=== PATIENT | female | born 1985 | race Caucasian/White ===

== ENCOUNTER 2017-08-02 16:18 | Emergency (ER) | payer OTHER ==
[~2017-08-02] VITALS: Ht 152.4 cm; Wt 70.8 kg
--- NOTE | 2017-08-02 16:25 | NUR ---
[id number], [id number] FROM [facility]: LOWER ABDOMINAL PAIN x 3 HRS. RR IS EVEN AND UNLABORED WITH NAD NOTED. SKIN IS WARM AND DRY. AWAITING MD FOR EVAL.
--- NOTE | 2017-08-02 16:28 | NUR ---
CALISTA MUNOZ AT BS FOR EVAL.
[2017-08-02] MEDS ORDERED: HYDROCODONE/APAP 5/325MG 1 EACH TABLET PO ONE (17:00)
[2017-08-02 17:04] LABS: APPEARANCE,URINE Slightly Cloudy (CLEAR); BILIRUBIN,URINE Negative (NEGATIVE); BLOOD, URINE Moderate Ery/uL (NEGATIVE); COLOR,URINE Yellow (YELLOW); KETONES,URINE Negative (NEGATIVE); LEUKOCYTE ESTERASE ,URINE Small (NEGATIVE); NITRITE, URINE Negative (NEGATIVE); PH,URINE 5.5 (5.0-8.0); PROTEIN,URINE 100 mg/dl (NEGATIVE); UGLUCOSE Negative (NEGATIVE)
[2017-08-02 17:06] LABS: BASOPHILS # (AUTO) 0.2 /CMM (0.0-0.2); BASOPHILS % (AUTO) 1.5 % (0.0-2.0); EOSINOPHILS # (AUTO) 0.1 /CMM (0.0-0.7); EOSINOPHILS % (AUTO) 0.6 % (0.0-6.0); HEMATOCRIT 41 % (33-45); HEMOGLOBIN 13.9 g/dL (11.5-14.8); LYMPHOCYTES # (AUTO) 2.3 /CMM (0.8-4.8); LYMPHOCYTES % (AUTO) 22.8 % (20.0-44.0); MEAN CORPUSCULAR HEMOGLOBIN 29 PG (26.0-33.0); MEAN CORPUSCULAR HGB CONC 34 g/dl (31.0-36.0); MEAN CORPUSCULAR VOLUME 84 fL (82-100); MONOCYTES # (AUTO) 0.7 /CMM (0.1-1.30); MONOCYTES % (AUTO) 6.7 % (2.0-12.0); NEUTROPHILS # (AUTO) 6.9 /CMM (1.8-8.9); NEUTROPHILS % (AUTO) 68.4 % (43.0-81.0); PLATELET COUNT (AUTO) 118 /CMM (150-450); RDW COEFFICIENT OF VARIATION 12.6 (11.5-15.0); RED BLOOD CELL COUNT(AUTO) 4.82 MIL/uL (4.0-5.2); WHITE BLOOD COUNT (AUTO) 10.2 K/uL (4.3-11.0)
[2017-08-02 17:12] LABS: CALCIUM, SERUM 9.3 mg/dL (8.5-10.1); CREATININE 0.5 mg/dL (0.6-1.3); POTASSIUM 3.5 mmol/L (3.5-5.1)
[2017-08-02 17:18] LABS: ALBUMIN 3.8 g/dL (3.4-5.0); BILIRUBIN,DIRECT 0.1 mg/dL (0.0-0.2); BILIRUBIN,TOTAL 0.6 mg/dL (0.2-1.0); TOTAL PROTEIN, SERUM 8.2 g/dL (6.4-8.2)
[2017-08-02] MEDS ORDERED: HYDROCODONE/APAP 5/325MG 1 EACH TABLET ONE (17:25)
[2017-08-02 17:35] LABS: APPEARANCE,URINE Slightly Cloudy (CLEAR); BILIRUBIN,URINE Negative (NEGATIVE); BLOOD, URINE Negative Ery/uL (NEGATIVE); COLOR,URINE Yellow (YELLOW); KETONES,URINE Trace (NEGATIVE); LEUKOCYTE ESTERASE ,URINE Small (NEGATIVE); NITRITE, URINE Negative (NEGATIVE); PROTEIN,URINE Trace mg/dl (NEGATIVE); UGLUCOSE Negative (NEGATIVE)
[2017-08-02 17:45] LABS: BACTERIA,URINE Moderate /HPF (None Seen); SQUAMOUS EPITHELIAL CELL,UR Few /HPF (None Seen)
[2017-08-02] MEDS ORDERED: NITROFURANTOIN/NITROFURAN MAC 100 MG CAPSULE PO ONE (18:00)
[2017-08-02] MEDS ORDERED: NITROFURANTOIN/NITROFURAN MAC 100 MG CAPSULE ONE (18:10)
--- NOTE | 2017-08-02 18:20 | NUR ---
CALISTA MUNOZ AT BS FOR AN UPDATE AND RE-EVAL.
--- NOTE | 2017-08-02 18:55 | NUR ---
Patient discharged to home in stable condition. Written and verbal after care instructions given. Patient verbalizes understanding of instruction.
[2017-08-02 18:57] VITALS: BP 125/68
== END 2017-08-02 18:59 | disposition home or self-care (01) ==
LOC: ER 16:19
DX: N39.0 Urinary tract infection, site not specified (principal); R10.10 Upper abdominal pain, unspecified; Q61.5 Medullary cystic kidney; K76.0 Fatty (change of) liver, not elsewhere classified; Z90.49 Acquired absence of other specified parts of digestive tract
CPT/HCPCS: 36415; 76770; 80048; 80076; 81001 ×2; 84703; 85025; 87077; 87086; 87186; 99285; A4606; Z7610; 81000-TC

== ENCOUNTER 2018-08-29 02:27 | Emergency (ER) | payer OTHER ==
[~2018-08-29] VITALS: Ht 162.6 cm; Wt 65.3 kg
--- NOTE | 2018-08-29 02:31 | NUR ---
PT AMBULATED TO THE BATHROOM TO GIVE A URINE SAMPLE, BUT WAS UNABLE TO GIVE A SAMPLE.
--- NOTE | 2018-08-29 02:31 | NUR ---
PT BIB [facility] WITH A C/O LOWER BACK PAIN. PT HAS NO MEDICAL HX AND WAS SHOPPING AT [employer] WHEN SHE CALLED 911. PT HAS NO ID AND IS AMBULATORY WITH A STEADY GAIT. PT IS CANADIAN SPEAKING ONLY.
[2018-08-29] MEDS ORDERED: MAG HYDROX/AL HYDROX/SIMETH 30 ML UDC ONE (02:57)
[2018-08-29] MEDS ORDERED: LIDOCAINE VISCOUS 2% UD 15 ML UDC ONE (02:57)
[2018-08-29] MEDS ORDERED: MAG HYDROX/AL HYDROX/SIMETH 30 ML UDC PO ONE (03:00)
[2018-08-29] MEDS ORDERED: LIDOCAINE VISCOUS 2% UD 15 ML UDC MM ONE (03:00)
--- NOTE | 2018-08-29 03:05 | NUR ---
PT IS LYING ON HER SIDE, SLEEPING SOUNDLY. PT DID NOT WAKE UP RIGHT AWAY. PT STATED THAT SHE COULD NOT GIVE A URINE SAMPLE. PT WENT BACK TO SLEEP. WILL TRY AGAIN LATER.
--- NOTE | 2018-08-29 04:00 | NUR ---
PT IS SLEEPING SOUNDLY. HAD TO WAKE PT UP TO ASK IF SHE COULD GIVE A URINE SAMPLE. PT STATED THAT SHE COULD NOT GIVE A SAMPLE AT THIS TIME.
--- NOTE | 2018-08-29 04:05 | NUR ---
SPOKE TO PT RE: DOING AN IN AND OUT CATH. PT STATED THAT SHE COULD NOT GO RIGHT NOW AND WOULD ALLOW FOR A RAHMAN. PRAFUL, EMT WAS AT THE BEDSIDE TRANSLATING FOR PT. PT IS GERMAN SPEAKING ONLY.
--- NOTE | 2018-08-29 04:15 | NUR ---
URINE SAMPLE OBTAINED. APPROX 200 ML YELLOW URINE OUTPUT NOTED. SAMPLE SENT TO LAB.
--- NOTE | 2018-08-29 04:35 | NUR ---
CALLED ANDRES FOR REPORT
[2018-08-29 04:55] LABS: APPEARANCE,URINE SL CLOUDY (CLEAR); BILIRUBIN,URINE NEGATIVE (NEGATIVE); BLOOD, URINE NEGATIVE Ery/uL (NEGATIVE); COLOR,URINE YELLOW (YELLOW); KETONES,URINE NEGATIVE (NEGATIVE); LEUKOCYTE ESTERASE ,URINE TRACE (NEGATIVE); NITRITE, URINE NEGATIVE (NEGATIVE); PROTEIN,URINE NEGATIVE (NEGATIVE); UGLUCOSE NEGATIVE (NEGATIVE)
--- NOTE | 2018-08-29 05:00 | NUR ---
PT IS SLEEPING SOUNDLY WITH NO S/S OF PAIN OR DISTRESS. WILL CONTINUE TO MONITOR THE PT.
[2018-08-29 05:08] LABS: BACTERIA,URINE Few /HPF (None Seen); SQUAMOUS EPITHELIAL CELL,UR Few /HPF (None Seen); WBC,URINE 21-50 /HPF (0-3)
--- NOTE | 2018-08-29 05:10 | NUR ---
PT WAS SLEEPING SOUNDLY AND HAD TO BE WOKEN UP. PT FINALLY WOKE UP AND STARTED SAYING THAT SHE IS TIRED AND DOESN'T FEEL WELL.
--- NOTE | 2018-08-29 05:20 | NUR ---
Patient discharged to home in stable condition. Written and verbal after care instructions given. Patient verbalizes understanding of instruction. PT REFUSED TO SIGN THE PAPERWORK AND PT DID NOT WANT TO LEAVE. PT WAS SLEEPING SOUNDLY AND WAS NOT READY TO LEAVE. PT AMBULATED TO THE BATHROOM WITH A STEADY GAIT. NO ATAXIA NOTED. SECURITY IS STANDING BY TO ESCORT PT OUT OF THE ER. PT REC'D A SWEATER/JACKET AND SWEATPANTS. PT'S CLOTHES WERE LIGHT. PT DENIES BEING HOMELESS AND STATED THAT SHE LIVES WITH HER FATHER.
[2018-08-29] MEDS ORDERED: GUAIFENESIN/D-METHORPHAN HB 5 ML UDC ONE (05:44)
--- NOTE | 2018-08-29 05:45 | NUR ---
PT CAME OUT OF THE BATHROOM AND C/O A SORE THROAT. DR. JC EVALUATED HER AND ORDERED ROBATUSSIN DM. PT REFUSED MEDICATION AND STARTED YELLING THAT SHE FEELS BAD. PT WAS OFFERED THE COUGH SYRUP 3 TIMES AND PT REFUSED AND CONTINUED TO YELL AND C/O A SORE THROAT. PT WAS ASKED TO GO TO THE WAITING ROOM. PT WAS YELLING THAT "YOU WOULDN'T KICK OUT A DOG LIKE THIS". PT AMBULATED OUT TO THE LOBBY WITH A STEADY GAIT AND NO S/S OF PAIN OR DISTRESS WAS NOTED. RESP ARE EVEN AND UNLABORED.
--- NOTE | 2018-08-29 05:45 | NUR ---
PT DENIES BEING HOMELESS. PT STATED THAT SHE LIVES WITH HER FATHER.
[2018-08-29] MEDS ORDERED: GUAIFENESIN/D-METHORPHAN HB 5 ML UDC PO ONE (06:00)
[2018-08-29 06:07] VITALS: BP 128/75
--- NOTE | 2018-08-29 06:23 | NUR ---
PT IS ACTING UP IN THE WAITING ROOM S/P DISCHARGE. HORACIO DILLON/ANAG CALLED SOBIA, THE NURSING TREE SPECIALIST TO LET HER KNOW WHAT IS GOING ON. ADVISED BY NURSING TREE SPECIALIST THAT THE PT CAN STAY IN THE LOBBY UNTIL SHE'S READY TO LEAVE.
--- NOTE | 2018-08-29 06:32 | NUR ---
SOBIA, NURSING FOAM RUBBER FABRICATOR IS IN THE LOBBY SPEAKING TO THE PT.
== END 2018-08-29 05:45 | disposition home or self-care (01) ==
LOC: ER 02:27
DX: K21.9 Gastro-esophageal reflux disease without esophagitis (principal); M54.5 Low back pain; Z90.49 Acquired absence of other specified parts of digestive tract
CPT/HCPCS: 72100-TC; 81000-TC; 87086-TC; 87186-TC

== ENCOUNTER 2018-09-03 12:37 | Emergency (ER) | payer OTHER ==
[~2018-09-03] VITALS: Ht 162.6 cm; Wt 59.0 kg
--- NOTE | 2018-09-03 13:00 | NUR ---
patient presented to the ER c/o cough/congestion. On room air, breathing evenly and unlabored. Connected to the monitor and pulse ox. kept comfortable. will continue to monitor accordingly.
[2018-09-03] MEDS ORDERED: ONDANSETRON HCL/PF 4 MG/2 ML VIAL IVP ONE (14:00)
[2018-09-03] MEDS ORDERED: IV NS 0.9% 1,000 ML BAG IV ONE (14:00)
[2018-09-03] MEDS ORDERED: KETOROLAC TROMETHAMINE INJ 30 MG/ML VIAL IV ONE (14:00)
[2018-09-03 14:17] LABS: BASOPHILS # (AUTO) 0.1 /CMM (0.0-0.2); BASOPHILS % (AUTO) 0.9 % (0.0-2.0); EOSINOPHILS % (AUTO) 1.3 % (0.0-6.0); HEMATOCRIT 35 % (33-45); HEMOGLOBIN 11.6 g/dL (11.5-14.8); LYMPHOCYTES # (AUTO) 2.3 /CMM (0.8-4.8); LYMPHOCYTES % (AUTO) 22.2 % (20.0-44.0); MEAN CORPUSCULAR HGB CONC 33 g/dl (31.0-36.0); MEAN CORPUSCULAR VOLUME 82 fL (82-100); MONOCYTES # (AUTO) 0.8 /CMM (0.1-1.30); MONOCYTES % (AUTO) 7.4 % (2.0-12.0); NEUTROPHILS # (AUTO) 7.2 /CMM (1.8-8.9); NEUTROPHILS % (AUTO) 68.2 % (43.0-81.0); PLATELET COUNT (AUTO) 303 /CMM (150-450); WHITE BLOOD COUNT (AUTO) 10.5 K/uL (4.3-11.0)
[2018-09-03] MEDS ORDERED: ONDANSETRON HCL/PF 4 MG/2 ML VIAL ONE (14:26)
[2018-09-03 14:33] LABS: POTASSIUM 3.7 mmol/L (3.5-5.1)
[2018-09-03 14:37] LABS: CREATININE 0.5 mg/dL (0.6-1.3)
[2018-09-03 14:43] LABS: BILIRUBIN,TOTAL 0.5 mg/dL (0.2-1.0)
[2018-09-03 14:44] LABS: TOTAL PROTEIN, SERUM 7.6 g/dL (6.4-8.2)
[2018-09-03 15:14] LABS: APPEARANCE,URINE Clear (CLEAR); BILIRUBIN,URINE Negative (NEGATIVE); BLOOD, URINE Large Ery/uL (NEGATIVE); COLOR,URINE Light yellow (YELLOW); KETONES,URINE Trace (NEGATIVE); LEUKOCYTE ESTERASE ,URINE Trace (NEGATIVE); NITRITE, URINE Negative (NEGATIVE); PH,URINE 7.5 (5.0-8.0); PROTEIN,URINE Negative (NEGATIVE); UGLUCOSE Negative (NEGATIVE); UROBILINOGEN,URINE 0.2 EU/dL (0.2)
[2018-09-03] MEDS ORDERED: KETOROLAC TROMETHAMINE INJ 30 MG/ML VIAL ONE (15:21)
[2018-09-03 15:26] LABS: RBC,URINE TOO NUMEROUS TO COUN /HPF (0-2); WBC,URINE 0-2 /HPF (0-3)
[2018-09-03 15:27] LABS: BACTERIA,URINE None seen /HPF (None Seen); SQUAMOUS EPITHELIAL CELL,UR Few /HPF (None Seen)
--- NOTE | 2018-09-03 16:04 | NUR ---
Carissa SW at bedside and spoke to the patient. Per patient she needs a long term and per Carissa long term is closed already and will follow up in the morning. Edouard TRINH aware.
--- NOTE | 2018-09-03 16:26 | NUR ---
Social service consult requested by doctor for homelessness. Pt. is a 33 year old female who came to [facility] for flu like symptoms. Pt. is Slovenian speaking. OMAYRA had CHANELLE Smith assist in translation. Pt. appears disheveled and her make up in smeared on her face. Pt. states she is homeless and has been for a long time but is not willing to disclose how long she has been homeless. 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 Pt. denies any alcohol, drug, marijuana and cigarette use. Pt. is wanting penitentiary placement. SW informed pt. there is no penitentiary availibility at this time and SW will find penitentiary placement in the morning at the [facility]. Pt. agreed to wait until the morning. No other services are required at this time. OMAYRA placed penitentiary resources and Homeless Patient Waiver form in pt's chart in case pt. decides to want to leave and not wait for penitentiary placement. Doctor and HORACIO Alvarez are aware of pt's discharge disposition.
--- NOTE | 2018-09-04 08:30 | NUR ---
LITERACY TEACHER RAMIN AT BEDSIDE, PT SIGNED HOMELESS WAIVER FORM, PT IN STABLE CONDITION, VSS, PROVIDED WITH RESOURCES. IV removed. Catheter intact and site benign. Pressure and 4x4 applied to site. No bleeding noted. ID BAND REMOVED. ASSISTED TO CHAIR ROOM 18 UNTIL AVAILABILITY OF [facility].
--- NOTE | 2018-09-04 08:50 | NUR ---
BREAKFAST TRAY PROVIDED. TOLERATING PO WELL.
--- NOTE | 2018-09-04 08:51 | NUR ---
SW met with pt. again bedside to inquire if she is still wanting retirement placement. Pt. stated, "Yes." SW informed pt. she will contact [facility] at 10 AM with bed availability and follow up with the pt. Pt. was provided with breakfast. Homeless Waiver was signed by the pt. and placed in pt's chart.
[2018-09-04 09:30] VITALS: BP 135/88
--- NOTE | 2018-09-04 09:30 | NUR ---
IV removed. Catheter intact and site benign. Pressure and 4x4 applied to site. No bleeding noted. ID Band removed. Patient given written and verbal discharge instructions. Patient verbalizes understanding of instructions. Patient is ambulatory with steady gait. assisted to waiting room. Patient given list of available shelters in surrounding area. Pt wearing appropriate clothes upon discharge. Pt signed waiver form for homeless.
--- NOTE | 2018-09-04 11:22 | NUR ---
SW was informed by security Nicholas that pt. left the waiting room area.
== END 2018-09-04 09:40 | disposition home or self-care (01) ==
LOC: ER 12:43
DX: J06.9 Acute upper respiratory infection, unspecified (principal); Z59.0 Homelessness; Z90.49 Acquired absence of other specified parts of digestive tract; Z60.2 Problems related to living alone
CPT/HCPCS: 36415; 71045; 80048; 80076; 81001; 83690; 84703; 85025; 87070; 87880; 93005; 96374; 96375; 99284; J1885; J2405; J7030; 81000-TC; 86403-TC